=== PATIENT | male | born 2000 | race Caucasian/White ===

== ENCOUNTER 2021-09-06 07:45 | Day surgery (SDC) | payer MEDICAID, SELFPAY ==
[~2021-09-06] VITALS: Ht 175.3 cm; Wt 54.4 kg
[2021-09-06] MEDS ORDERED: fentaNYL citrate 0.05 MG/ML VIAL ONE (11:52)
[2021-09-06] MEDS ORDERED: MIDAZOLAM 5 MG/5 ML VIAL ONE (11:52)
[2021-09-06] MEDS ORDERED: diphenhydrAMINE 50 MG/ML VIAL ONE (11:56)
[2021-09-06] MEDS: fentaNYL citrate 0.05 MG/ML VIAL IVP ONE (11:59)
[2021-09-06] MEDS: MIDAZOLAM 2 MG/2 ML VIAL IVP ONE (12:00)
[2021-09-06] MEDS: diphenhydrAMINE 50 MG/ML VIAL IVP ONE (12:07)
== END 2021-09-06 12:59 | disposition home or self-care (01) ==
LOC: MDS 07:45 → MMU 07:45 → MDS 12:59
PROVIDERS: ATTEND Internal Medicine Gastroenterology
DX: R19.6 Halitosis (principal); K29.70 Gastritis, unspecified, without bleeding; G43.909 Migraine, unspecified, not intractable, without status migrainosus; Z79.899 Other long term (current) drug therapy; Z20.822 Contact with and (suspected) exposure to COVID-19
CPT/HCPCS: 43239; 87426; J1200; J2250; J3010; 88305; 88312; 88313; 88342